=== PATIENT | female | born 1980 ===

== ENCOUNTER 2019-03-13 22:18 | Inpatient (IN) | payer OTHER ==
[2019-03-13] MEDS ORDERED: Sodium Chloride 0.9% 10 ML Syringe FLUSH PRN (23:44)
[2019-03-13] MEDS ORDERED: Butorphanol 1 MG/ML SDV IVPUSH PRN (23:44)
[2019-03-13] MEDS ORDERED: Tranexamic Acid 1,000 MG in Sodium Chloride 0.9% 100 ML IV PRN (23:44)
[2019-03-13] MEDS ORDERED: Methylergonovine 0.2 MG/1 ML Amp IM PRN (23:44)
[2019-03-13] MEDS ORDERED: Water For Irrigation,Sterile 1,000 ML Container IRR PRN (23:44)
[2019-03-13] MEDS ORDERED: Lidocaine 1% 50 ML MDV INJECT PRN (23:44)
[2019-03-13] MEDS ORDERED: Misoprostol 25 MCG (1/4 of 100 MCG) Tab PO PRN (23:44)
[2019-03-13] MEDS ORDERED: Nalbuphine 10 MG/1 ML Vial IVPUSH PRN (23:44)
[2019-03-13] MEDS ORDERED: Terbutaline 1 MG/ML SDV SUBCUT PRN (23:44)
[2019-03-13] MEDS ORDERED: Ondansetron 4 MG/2 ML SDV IVPUSH PRN (23:44)
[2019-03-13] MEDS ORDERED: Misoprostol 25 MCG (1/4 of 100 MCG) Tab VAG PRN (23:44)
[2019-03-13] MEDS ORDERED: Misoprostol 200 MCG Tab PO PRN (23:44)
[2019-03-13] MEDS ORDERED: Carboprost Tromethamine 250 MCG/1 ML Amp IM PRN (23:44)
[2019-03-13] MEDS ORDERED: Sodium Chloride 0.9% 10 ML SDV IV PRN (23:44)
[2019-03-13] MEDS ORDERED: Oxytocin/0.9 % Sodium Chloride 30 UNIT/500 ML BAG IV SCH ×2 (23:45)
[2019-03-13] MEDS ORDERED: Lactated Ringers 1,000 ML IV SCH (23:45)
[2019-03-14] MEDS ORDERED: Terbutaline 1 MG/ML SDV ONE (03:30)
[2019-03-14] MEDS ORDERED: Propofol 200 MG/20 ML SDV ONE (03:32)
[2019-03-14] MEDS ORDERED: Lidocaine 1% 50 ML MDV ONE (03:32)
[2019-03-14] MEDS ORDERED: Midazolam 1 MG/ML 2 ML SDV ONE (03:39)
[2019-03-14] MEDS ORDERED: fentaNYL 250 MCG/5 ML SDV ONE (03:40)
[2019-03-14] MEDS ORDERED: HYDROmorphone 2 MG/ML Syringe ONE (03:53)
[2019-03-14] MEDS ORDERED: EPINEPHrine 1:10,000 1 MG/10 ML Syringe IVPUSH PRN (04:04)
[2019-03-14] MEDS ORDERED: 50% Dextrose in Water 50 ML Syringe IVPUSH PRN (04:04)
[2019-03-14] MEDS ORDERED: Albuterol 0.083% 2.5 MG/3 ML Neb Soln NEB PRN (04:04)
[2019-03-14] MEDS ORDERED: Atropine 0.1 MG/ML 10 ML Syringe IVPUSH PRN ×2 (04:04)
[2019-03-14] MEDS ORDERED: Naloxone 0.4 MG/ML Syringe IVPUSH PRN (04:04)
[2019-03-14] MEDS ORDERED: Octyl 2-Cyanoacrylate 1 Tube ONE (04:06)
[2019-03-14] MEDS ORDERED: Sugammadex Sodium 200 MG/2 ML VIAL ONE (04:15)
--- NOTE | 2019-03-14 04:30 | CR ---
Indication: S/p emergency Technique: Supine view abdomen Comparison: None Findings/Impression: : No radiopaque foreign body identified. Increased soft tissue density within the central abdomen consistent with enlarged uterus. Nonspecific bowel gas pattern. Dictated by Vickie Hernandez MD @ Mar 14 2019 4:26AM Signed by Dr. Vickie Hernandez @ Mar 14 2019 4:28AM
--- NOTE | 2019-03-14 04:32 | PCM.LDHP ---
L&D History of Present Illness - General Date of Service: 03/14/19 Admit Problem/Dx: Patient Status Order with Admit Dx/Problem 03/13/19 23:44 Patient Status [ADT] Routine Admission Diagnosis/Problem Admission Diagnosis/Problem -related examination Source of Information: Patient History Limitations: Reports: No Limitations - History of Present Illness Improves with: Reports: None Worsens with: Reports: None Associated Symptoms: Reports: N - Related Data Allergies/Adverse Reactions: Allergies Allergy/AdvReac Type Severity Reaction Status Date / Time No Known Allergies Allergy Verified 03/13/19 16:16 Home Medications: Home Meds Ferrous Sulfate [Iron] 325 mg PO DAILY 03/13/19 [History] Vits #93/Iron Fum/FA [ Formula Tablet] 1 each PO DAILY [History] valACYclovir HCl [Valtrex] 500 mg PO DAILY 03/13/19 [History] Past Medical History - Past Health History Medical/Surgical History: Denies 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: Social & Family History - Family History Family Medical History: Noncontributory - Tobacco Use Smoking Status *Q: Never Smoker Second Hand Smoke Exposure: No - Caffeine Use Caffeine Use: Reports: Soda - Recreational Drug Use Recreational Drug Use: No H&P Review of Systems - Review of Systems: Review Of Systems: See Below General: Reports: No Symptoms HEENT: Reports: No Symptoms Pulmonary: Reports: No Symptoms Cardiovascular: Reports: No Symptoms Gastrointestinal: Reports: No Symptoms Genitourinary: Reports: No Symptoms Musculoskeletal: Reports: No Symptoms Skin: Reports: No Symptoms Psychiatric: Reports: No Symptoms Neurological: Reports: No Symptoms Hematologic/Lymphatic: Reports: No Symptoms Immunologic: Reports: No Symptoms L&D Exam - Exam Exam: See Below - Vital Signs Weight: 86.183 kg - OB Specific Contraction Intensity: Mild Movement: Active Heart Tones: Present Presentation: Vertex - Alamo Score Alamo Score Cervix Position: Midposition Alamo Score Consistency: Medium Alamo Score Effacement: 31-50% Alamo Score Dilation: Closed Alamo Score 's Station: -3 Alamo Score Total: 3 - Exam General: Alert, Oriented HEENT: PERRLA, Conjunctiva Clear, EACs Clear, EOMI, Hearing Intact, Mucosa Moist & [place], Nares Patent, Normal Nasal Septum, Posterior Pharynx Clear, TMs Clear Neck: Supple, Trachea Midline Lungs: Clear to Auscultation, Normal Respiratory Effort Cardiovascular: Regular Rate, Regular Rhythm GI/Abdominal Exam: Normal Bowel Sounds, Soft, Non-Tender, No Organomegaly, No Distention, No Abnormal Bruit, No Mass, Pelvis Stable Rectal Exam: Normal Exam, Normal Rectal Tone Genitourinary: Normal external exam, Normal bimanual exam, Normal speculum exam Back Exam: Normal Inspection, Full Range of Motion Extremities: Normal Inspection, Normal Range of Motion, Non-Tender, No Pedal Edema, Normal Capillary Refill Skin: Warm, Dry, Intact Neurological: Cranial Nerves Intact, Reflexes Equal Bilateral Psychiatric: Alert, Normal Affect, Normal Mood - Patient Data Lab Results Last 24 hrs: Laboratory Results - last 24 hr 03/14/19 03/14/19 Range/Units 00:24 00:24 WBC 10.94 (4.0-11.0) K/uL RBC 4.11 L (4.30-5.90) M/uL Hgb 12.4 (12.0-16.0) g/dL Hct 36.8 (36.0-46.0) % MCV 89.5 (80.0-98.0) fL MCH 30.2 (27.0-32.0) pg MCHC 33.7 (31.0-37.0) g/dL RDW Std Deviation 59.0 (28.0-62.0) fl RDW Coeff of Bety 18 H (11.0-15.0) % Plt Count 224 (150-400) K/uL MPV 10.30 (7.40-12.00) fL Nucleated RBC % 0.0 /100WBC Nucleated RBCs # 0 K/uL Blood Type B POSITIVE Antibody Screen NEGATIVE Crossmatch See Detail Result Diagrams: 03/14/19 00:24 Problem List Initiated/Reviewed/Updated: Yes Orders Last 24hrs: Active Orders 24 hr Category Date Time Status Patient Status [ADT] Routine ADT 03/13/19 23:44 Active Bedrest Bathroom Privileges [RC] ASDIRECTED Care 03/13/19 23:44 Active Blood Glucose Check, Bedside [RC] PRN Care 03/14/19 04:04 Active Communication Order [RC] ASDIRECTED Care 03/13/19 23:44 Active Communication Order [RC] ASDIRECTED Care 03/13/19 23:44 Active Communication Order [RC] ASDIRECTED Care 03/13/19 23:44 Active Heart Tones [RC] CONTINUOUS Care 03/13/19 23:44 Active Non Stress Test [RC] PER UNIT ROUTINE Care 03/13/19 23:44 Active May Shower [RC] ASDIRECTED Care 03/13/19 23:44 Active Notify Provider Vital Signs [RC] ASDIRECTED Care 03/14/19 04:04 Active Notify Provider [RC] PRN Care 03/13/19 23:44 Active Notify Provider [RC] PRN Care 03/13/19 23:44 Active Notify Provider [RC] PRN Care 03/13/19 23:44 Active Notify Provider [RC] STAT Care 03/13/19 23:44 Active Oxygen Therapy [RC] ASDIRECTED Care 03/13/19 23:44 Active Oxygen Therapy [RC] PRN Care 03/14/19 04:04 Active RT Aerosol Therapy [RC] ASDIRECTED Care 03/14/19 04:04 Active RT Aerosol Therapy [RC] ASDIRECTED Care 03/14/19 04:04 Active RT Aerosol Therapy [RC] ASDIRECTED Care 03/14/19 04:04 Active Up ad Monica [RC] ASDIRECTED Care 03/13/19 23:44 Active Vaginal Exam [RC] PRN Care 03/13/19 23:44 Active Vaginal Exam [RC] PRN Care 03/13/19 23:44 Active Vital Signs [RC] PER UNIT ROUTINE Care 03/13/19 23:44 Active Vital Signs [RC] PER UNIT ROUTINE Care 03/13/19 23:44 Active Vital Signs [RC] Q5M Care 03/14/19 04:04 Active Regular Diet [DIET] Diet 03/14/19 Breakfast Active RED BLOOD CELLS LP [BBK] Stat Lab 03/14/19 00:24 Results TYPE AND SCREEN [BBK] Routine Lab 03/13/19 23:44 Results Albuterol [Proventil Neb Soln] Med 03/14/19 04:04 Active 2.5 mg NEB ONETIME PRN Atropine [Atropine 0.1 MG/ML] Med 03/14/19 04:04 Active 0.5 mg IVPUSH ASDIRECTED PRN Atropine [Atropine 0.1 MG/ML] Med 03/14/19 04:04 Active 1 mg IVPUSH ASDIRECTED PRN Butorphanol [Stadol] Med 03/13/19 23:44 Active 1 mg IVPUSH ASDIRECTED PRN Carboprost Tromethamine [Hemabate DS] Med 03/13/19 23:44 Active 250 mcg IM ASDIRECTED PRN Dextrose 50% in Water Med 03/14/19 04:04 Active 50 ml IVPUSH ASDIRECTED PRN EPINEPHrine [EPINEPHrine 1:10,000] Med 03/14/19 04:04 Active 1 mg IVPUSH ASDIRECTED PRN Lactated Ringers [Ringers, Lactated] 1,000 ml Med 03/13/19 23:45 Active IV ASDIRECTED Lidocaine 1% [Xylocaine 1%] Med 03/13/19 23:44 Active 50 ml INJECT ONETIME PRN Methylergonovine [Methergine] Med 03/13/19 23:44 Active 0.2 mg IM ASDIRECTED PRN Nalbuphine [Nubain] Med 03/13/19 23:44 Active 10 mg IVPUSH ASDIRECTED PRN Naloxone [Narcan] Med 03/14/19 04:04 Active 0.1 mg IVPUSH ASDIRECTED PRN Ondansetron [Zofran] Med 03/13/19 23:44 Active 4 mg IVPUSH Q6H PRN Oxytocin/0.9 % Sodium Chloride [Oxytocin 30 Unit/500 ML Med 03/13/19 23:45 Active -NS] 30 unit in 500 ml IV TITRATE Oxytocin/0.9 % Sodium Chloride [Oxytocin 30 Unit/500 ML Med 03/13/19 23:45 Active -NS] 30 unit in 500 ml IV TITRATE Sodium Chloride 0.9% [Normal Saline] Med 03/13/19 23:44 Active 10 ml IV ASDIRECTED PRN Sodium Chloride 0.9% [Saline Flush] Med 03/13/19 23:44 Active 10 ml FLUSH ASDIRECTED PRN Terbutaline [Brethine] Med 03/13/19 23:44 Active 0.25 mg SUBCUT ASDIRECTED PRN Tranexamic Acid [Cyklokapron] 1,000 mg Med 03/13/19 23:44 Active Sodium Chloride 0.9% [Normal Saline] 100 ml IV ONETIME Water For Irrigation,Sterile [Sterile Water for Med 03/13/19 23:44 Active Irrigation] 1,000 ml IRR ASDIRECTED PRN fentaNYL [Sublimaze] Med 03/14/19 04:04 Active 50 - 100 mcg IVPUSH Q5M PRN miSOPROStol [Cytotec] Med 03/13/19 23:44 Active 200 mcg PO ONETIME PRN miSOPROStol [Cytotec] Med 03/13/19 23:44 Active 25 mcg PO Q4H PRN miSOPROStol [Cytotec] Med 03/13/19 23:44 Active 25 mcg VAG Q4H PRN Scalp Electrode [WOMSER] Per Unit Routine Oth 03/13/19 23:44 Ordered Medication Administration Instruction [OM.PC] Q3H Oth 03/13/19 23:45 Ordered Peripheral IV Insertion Adult [OM.PC] Routine Ot 03/13/19 23:44 Ordered Resuscitation Status Routine Resus Stat 03/13/19 23:44 Ordered Medication Orders Albuterol (Proventil Neb Soln) 2.5 mg NEB ONETIME PRN PRN Reason: Wheezing Atropine Sulfate (Atropine 0.1 Mg/Ml) 0.5 mg IVPUSH ASDIRECTED PRN PRN Reason: Hypo-perfusion Atropine Sulfate (Atropine 0.1 Mg/Ml) 1 mg IVPUSH ASDIRECTED PRN PRN Reason: Hypo-Perfusion Butorphanol Tartrate (Stadol) 1 mg IVPUSH ASDIRECTED PRN PRN Reason: Pain Carboprost Tromethamine (Hemabate Ds) 250 mcg IM ASDIRECTED PRN PRN Reason: Post Hemorrhage Dextrose/Water (Dextrose 50% In Water) 50 ml IVPUSH ASDIRECTED PRN PRN Reason: Hypoglycemia Epinephrine HCl (Epinephrine 1:10,000) 1 mg IVPUSH ASDIRECTED PRN PRN Reason: ACLS Guidelines Fentanyl (Sublimaze) 50 - 100 mcg IVPUSH Q5M PRN PRN Reason: Pain Lactated Ringer's (Ringers, Lactated) 1,000 mls @ 150 mls/hr IV ASDIRECTED [facility] Oxytocin/Sodium Chloride (Oxytocin 30 Unit/500 Ml-Ns) 30 unit in 500 mls @ 999 mls/hr IV TITRATE [facility] Oxytocin/Sodium Chloride (Oxytocin 30 Unit/500 Ml-Ns) 30 unit in 500 mls @ 2 mls/hr IV TITRATE [facility]; Protocol Tranexamic Acid 1,000 mg/ (Sodium Chloride) 110 mls @ 660 mls/hr IV ONETIME PRN PRN Reason: Bleeding Lidocaine HCl (Xylocaine 1%) 50 ml INJECT ONETIME PRN PRN Reason: Laceration repair Methylergonovine Maleate (Methergine) 0.2 mg IM ASDIRECTED PRN PRN Reason: Post Hemorrhage Misoprostol (Cytotec) 200 mcg PO ONETIME PRN PRN Reason: Post Hemorrhage Misoprostol (Cytotec) 25 mcg PO Q4H PRN PRN Reason: Cervical Ripening Last Admin: 03/14/19 01:00 Dose: 25 mcg Misoprostol (Cytotec) 25 mcg VAG Q4H PRN PRN Reason: Cervical Ripening Last Admin: 03/14/19 00:57 Dose: 25 mcg Nalbuphine HCl (Nubain) 10 mg IVPUSH ASDIRECTED PRN PRN Reason: Pain (severe 7-10) Naloxone HCl (Narcan) 0.1 mg IVPUSH ASDIRECTED PRN PRN Reason: Respiratory Depression Ondansetron HCl (Zofran) 4 mg IVPUSH Q6H PRN PRN Reason: Nausea/Vomiting Sodium Chloride (Saline Flush) 10 ml FLUSH ASDIRECTED PRN PRN Reason: Keep Vein Open Last Admin: 03/14/19 01:05 Dose: 10 ml Sodium Chloride (Normal Saline) 10 ml IV ASDIRECTED PRN PRN Reason: IV Use Sterile Water (Sterile Water For Irrigation) 1,000 ml IRR ASDIRECTED PRN PRN Reason: delivery Terbutaline Sulfate (Brethine) 0.25 mg SUBCUT ASDIRECTED PRN PRN Reason: Tacysystole Assessment/Plan Comment:: POst date 41+wks admited for induction.
[2019-03-14] MEDS ORDERED: Bisacodyl 10 MG Supp RECTAL PRN (04:33)
[2019-03-14] MEDS ORDERED: diphenhydrAMINE 50 MG/ML SDV IVPUSH PRN (04:33)
[2019-03-14] MEDS ORDERED: fentaNYL 100 MCG/2 ML SDV ONE (04:33)
[2019-03-14] MEDS ORDERED: Acetaminophen/oxyCODONE 325-5 MG Tab PO PRN (04:33)
[2019-03-14] MEDS ORDERED: Lanolin 100% Cream 7 GM Tube TOP PRN (04:33)
[2019-03-14] MEDS ORDERED: Ondansetron 4 MG/2 ML SDV IVPUSH PRN (04:33)
--- NOTE | 2019-03-14 04:41 | PCM.OPNOTE ---
- General Post-Op/Procedure Note Date of Surgery/Procedure: 03/14/19 Operative Procedure(s): Primary C/section. Pre Op Diagnosis: [id number] footling Breech. Post-Op Diagnosis: Same Anesthesia Technique: General ET Tube Primary Surgeon: Aly Fried EBL in mLs: 900 Complications: None Condition: Good
[2019-03-14] MEDS ORDERED: Lactated Ringers 1,000 ML IV SCH (04:45)
--- NOTE | 2019-03-14 05:08 | PCM.PREANE ---
Preanesthetic Assessment - Anesthesia/Transfusion/Family Hx Anesthesia History: No Prior Anesthesia Family History of Anesthesia Reaction: No Transfusion History: No Prior Transfusion(s) - Review of Systems General: No Symptoms Pulmonary: No Symptoms Cardiovascular: No Symptoms Gastrointestinal: No Symptoms Neurological: No Symptoms Other: Reports: None - Physical Assessment Height: 5 ft 4 in Weight: 86.183 kg ASA Class: 2E Mental Status: Alert & Oriented x3 Airway Class: Mallampati = 2 Dentition: Reports: Normal Dentition Thyro-Mental Finger Breadths: 3 Mouth Opening Finger Breadths: 3 ROM/Head Extension: Full Lungs: Clear to Auscultation, Normal Respiratory Effort Cardiovascular: Regular Rate, Regular Rhythm, Tachycardia - Lab Values: Laboratory Last Values WBC 10.94 K/uL (4.0-11.0) 03/14/19 00:24 RBC 4.11 M/uL (4.30-5.90) L 03/14/19 00:24 Hgb 12.4 g/dL (12.0-16.0) 03/14/19 00:24 Hct 36.8 % (36.0-46.0) 03/14/19 00:24 MCV 89.5 fL (80.0-98.0) 03/14/19 00:24 MCH 30.2 pg (27.0-32.0) 03/14/19 00:24 MCHC 33.7 g/dL (31.0-37.0) 03/14/19 00:24 RDW Std Deviation 59.0 fl (28.0-62.0) 03/14/19 00:24 RDW Coeff of Bety 18 % (11.0-15.0) H 03/14/19 00:24 Plt Count 224 K/uL (150-400) 03/14/19 00:24 MPV 10.30 fL (7.40-12.00) 03/14/19 00:24 Nucleated RBC % 0.0 /100WBC 03/14/19 00:24 Nucleated RBCs # 0 K/uL 03/14/19 00:24 Blood Type B POSITIVE 03/14/19 00:24 Antibody Screen NEGATIVE 03/14/19 00:24 Crossmatch See Detail 03/14/19 00:24 - Allergies Allergies/Adverse Reactions: Allergies Allergy/AdvReac Type Severity Reaction Status Date / Time No Known Allergies Allergy Verified 03/13/19 16:16 - Acknowledgements Anesthesia Type Planned: General Anesthesia Pt an Appropriate Candidate for the Planned Anesthesia: Yes Alternatives and Risks of Anesthesia Discussed w Pt/Guardian: Yes Pt/Guardian Understands and Agrees with Anesthesia Plan: Yes PreAnesthesia Questionnaire - Past Health History Medical/Surgical History: Denies Medical/Surgical History HEENT History: Reports: None Cardiovascular History: Reports: None Respiratory History: Reports: None Gastrointestinal History: Reports: GERD Genitourinary History: Reports: None 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: : 4 Para: 3 LMP (Approximate): Musculoskeletal History: Reports: None Neurological History: Reports: None Psychiatric History: Reports: None Endocrine/Metabolic History: Reports: None Hematologic History: Reports: None Immunologic History: Reports: None Oncologic (Cancer) History: Reports: None Dermatologic History: Reports: None - Infectious Disease History Infectious Disease History: Reports: None - SUBSTANCE USE Smoking Status *Q: Never Smoker Tobacco Use Within Last Twelve Months: No Second Hand Smoke Exposure: No Recreational Drug Use History: No - HOME MEDS Home Medications: Home Meds Ferrous Sulfate [Iron] 325 mg PO DAILY 03/13/19 [History] Vits #93/Iron Fum/FA [ Formula Tablet] 1 each PO DAILY [History] valACYclovir HCl [Valtrex] 500 mg PO DAILY 03/13/19 [History] - CURRENT (IN HOUSE) MEDS Current Meds: Current Medications Albuterol (Proventil Neb Soln) 2.5 mg NEB ONETIME PRN PRN Reason: Wheezing Atropine Sulfate (Atropine 0.1 Mg/Ml) 0.5 mg IVPUSH ASDIRECTED PRN PRN Reason: Hypo-perfusion Atropine Sulfate (Atropine 0.1 Mg/Ml) 1 mg IVPUSH ASDIRECTED PRN PRN Reason: Hypo-Perfusion Bisacodyl (Dulcolax) 10 mg RECTAL ONETIME PRN PRN Reason: Constipation Butorphanol Tartrate (Stadol) 1 mg IVPUSH ASDIRECTED PRN PRN Reason: Pain Carboprost Tromethamine (Hemabate Ds) 250 mcg IM ASDIRECTED PRN PRN Reason: Post Hemorrhage Dextrose/Water (Dextrose 50% In Water) 50 ml IVPUSH ASDIRECTED PRN PRN Reason: Hypoglycemia Diphenhydramine HCl (Benadryl) 25 mg IVPUSH Q6H PRN PRN Reason: Itching or Nausea Docusate Sodium (Colace) 100 mg PO BID [facility] Emollient Ointment (Lansinoh Hpa) 0 gm TOP ASDIRECTED PRN PRN Reason: Sore Nipples Epinephrine HCl (Epinephrine 1:10,000) 1 mg IVPUSH ASDIRECTED PRN PRN Reason: ACLS Guidelines Fentanyl (Sublimaze) 50 - 100 mcg IVPUSH Q5M PRN PRN Reason: Pain Lactated Ringer's (Ringers, Lactated) 1,000 mls @ 150 mls/hr IV ASDIRECTED [facility] Oxytocin/Sodium Chloride (Oxytocin 30 Unit/500 Ml-Ns) 30 unit in 500 mls @ 999 mls/hr IV TITRATE [facility] Oxytocin/Sodium Chloride (Oxytocin 30 Unit/500 Ml-Ns) 30 unit in 500 mls @ 2 mls/hr IV TITRATE [facility]; Protocol Tranexamic Acid 1,000 mg/ (Sodium Chloride) 110 mls @ 660 mls/hr IV ONETIME PRN PRN Reason: Bleeding Lactated Ringer's (Ringers, Lactated) 1,000 mls @ 125 mls/hr IV ASDIRECTED [facility] Ibuprofen (Motrin) 800 mg PO Q8H PRN PRN Reason: mild pain or fever Ketorolac Tromethamine (Toradol) 30 mg IVPUSH Q6H [facility] Stop: 03/15/19 04:01 Lidocaine HCl (Xylocaine 1%) 50 ml INJECT ONETIME PRN PRN Reason: Laceration repair Methylergonovine Maleate (Methergine) 0.2 mg IM ASDIRECTED PRN PRN Reason: Post Hemorrhage Misoprostol (Cytotec) 200 mcg PO ONETIME PRN PRN Reason: Post Hemorrhage Misoprostol (Cytotec) 25 mcg PO Q4H PRN PRN Reason: Cervical Ripening Last Admin: 03/14/19 01:00 Dose: 25 mcg Misoprostol (Cytotec) 25 mcg VAG Q4H PRN PRN Reason: Cervical Ripening Last Admin: 03/14/19 00:57 Dose: 25 mcg Nalbuphine HCl (Nubain) 10 mg IVPUSH ASDIRECTED PRN PRN Reason: Pain (severe 7-10) Naloxone HCl (Narcan) 0.1 mg IVPUSH ASDIRECTED PRN PRN Reason: Respiratory Depression Ondansetron HCl (Zofran) 4 mg IVPUSH Q6H PRN PRN Reason: Nausea/Vomiting Ondansetron HCl (Zofran) 4 mg IVPUSH Q4H PRN PRN Reason: Nausea/Vomiting Oxycodone/Acetaminophen (Percocet 325-5 Mg) 1 tab PO Q4H PRN PRN Reason: Pain (moderate 4-6) Oxycodone/Acetaminophen (Percocet 325-5 Mg) 2 tab PO Q4H PRN PRN Reason: Pain (moderate 4-6) Sodium Chloride (Saline Flush) 10 ml FLUSH ASDIRECTED PRN PRN Reason: Keep Vein Open Last Admin: 03/14/19 01:05 Dose: 10 ml Sodium Chloride (Normal Saline) 10 ml IV ASDIRECTED PRN PRN Reason: IV Use Sterile Water (Sterile Water For Irrigation) 1,000 ml IRR ASDIRECTED PRN PRN Reason: delivery Terbutaline Sulfate (Brethine) 0.25 mg SUBCUT ASDIRECTED PRN PRN Reason: Tacysystole Discontinued Medications Fentanyl (Sublimaze) Confirm Administered Dose 250 mcg .ROUTE .STK-MED ONE Stop: 03/14/19 03:41 Fentanyl (Sublimaze) Confirm Administered Dose 100 mcg .ROUTE .STK-MED ONE Stop: 03/14/19 04:34 Hydromorphone HCl (Dilaudid) Confirm Administered Dose 2 mg .ROUTE .STK-MED ONE Stop: 03/14/19 03:54 Lidocaine HCl (Xylocaine 1%) Confirm Administered Dose 50 ml .ROUTE .STK-MED ONE Stop: 03/14/19 03:33 Midazolam HCl (Versed 1 Mg/Ml) Confirm Administered Dose 2 mg .ROUTE .STK-MED ONE Stop: 03/14/19 03:40 Octyl Cyanoacrylate (Dermabond Advance) Confirm Administered Dose 1 applic .ROUTE .STK-MED ONE Stop: 03/14/19 04:07 Propofol (Diprivan 20 Ml) Confirm Administered Dose 200 mg .ROUTE .STK-MED ONE Stop: 03/14/19 03:33 Succinylcholine Chloride (Succinylcholine Chloride) Confirm Administered Dose 200 mg .ROUTE .STK-MED ONE Stop: 03/14/19 03:33 Sugammadex Sodium (Bridion) Confirm Administered Dose 200 mg .ROUTE .STK-MED ONE Stop: 03/14/19 04:16 Terbutaline Sulfate (Brethine) Confirm Administered Dose 2 mg .ROUTE .STK-MED ONE Stop: 03/14/19 03:31
[2019-03-14] MEDS: Ketorolac 30 MG/ML SDV IVPUSH SCH ×3 (05:14→17:51)
[2019-03-14] MEDS ORDERED: Meperidine PF 25 MG/ML Syringe IVPUSH ONE (05:18)
[2019-03-14] MEDS ORDERED: Meperidine PF 50 MG/ML Syringe ONE (05:19)
--- NOTE | 2019-03-14 05:37 | PCM.POSTAN ---
POST ANESTHESIA ASSESSMENT - MENTAL STATUS Mental Status: Alert, Oriented - VITAL SIGNS Pulse Rate: 90 SaO2: 98 Resp Rate: 14 Blood Pressure: 121/70 - RESPIRATORY Respiratory Status: Respiratory Rate WNL, Airway Patent, O2 Saturation Stable - CARDIOVASCULAR CV Status: Pulse Rate WNL, Blood Pressure Stable - GASTROINTESTINAL GI Status: No Symptoms - PAIN Pain Score: 2 - POST OP HYDRATION Hydration Status: Adequate & Stable
[2019-03-14] MEDS: fentaNYL 100 MCG/2 ML SDV IVPUSH PRN ×2 (05:41→05:55)
--- NOTE | 2019-03-14 06:25 | OR ---
SURGEON: Aly Fried MD DATE OF PROCEDURE: PREOPERATIVE DIAGNOSES: Intrauterine at 41+ weeks, emergency section for prolapsing footling breech presentation. POSTOPERATIVE DIAGNOSES: Intrauterine at 41+ weeks, emergency section for prolapsing footling breech presentation. OPERATION PERFORMED: Primary low-transverse section through a midline skin incision. ANESTHESIA: General with endotracheal intubation with Jose Dumont. ESTIMATED BLOOD LOSS: 900 mL. COMPLICATIONS: None. FINDING: Female fetus in footling breech presentation, cried at the at the time of the . Normal uterus, tubes, and ovaries. INDICATION FOR SURGERY: The patient is 41+ weeks. She is followed in our clinic primarily by our violin tutor. She is noncompliant with all her appointment. I saw her in the office on March 13, 2019, and she was 41+ weeks. I discussed with the patient, would have possible induction. The patient went to Labor and Delivery for NST testing which was reactive and she had biophysical profile, which is 8/8, and at that time, her presentation during the biophysical profile confirmed to be vertex by the ultrasound. After discussion the option with the patient, the patient agreed for the induction. She is admitted at midnight. At the time of admission, by examination by nurse, she was 1 cm, 50% vertex and -3. The patient had copious amount of amniotic fluid as it is noted by a biophysical profile earlier. The patient admitted for induction and she was induced with Cytotec. She was given one dose of Cytotec p.o. and vaginally, and she started progressing and at the time she became 5 cm and she had a spontaneous rupture of the membrane with copious amount of fluid as it came according to the nurses and then somehow the presentation changed from vertex to breech and there was a footling breech and there was a foot hanging in the vagina and through the introitus. I was called immediately and I responded in an emergency basis. We called the OR team and anesthesia when I was in route and we proceeded for emergency section. PROCEDURE IN DETAIL: The patient was brought to the OR. After placing in the operative room and with abbreviated prep and drapes and we have no time to put a Jackson catheter, but the patient is placed to sleep. Once the patient was placed to sleep, midline incision was done. Lucina's fascia and rectus fascia were opened in direction of the incision and the bladder blade was placed in the usual manner and then low transverse incision was done by me and the fetus was delivered from a footling breech and handed to the nurses who resuscitated the baby. The baby cried immediately and score not reported at the time of this dictation. Then I proceeded to close the uterine incision with 2-0 Vicryl continuous interlocking in 2 layers. By this time, I placed the pack on the incision and we had the OR charging board operator place a Jackson catheter to drain the bladder, and after draining the bladder, on inspection of the incision, there was an area of bleeding at the right corner of the incision. A [id number] suture was applied to that area and the bleeding stopped. Then reperitonealization done over the lower uterine segment with 3-0 Vicryl continuous. Inspection of the entire operative field shows no oozing, no bleeding. We proceeded to close the fascia with the peritoneum in mass closure using a #1 PDS continuous. The Lucina's fascia was closed with 3-0 Vicryl continuous. The skin closed with Insorb and Dermabond. Because we did not have preoperative count of the instrument and lap pad, a flat x-ray of the abdomen on the patient was done, and later on, it was reported there was no foreign body, it is clear from anything so. The patient awakened up and taken to the recovery room in stable general condition. LIANA BENITEZ /[id number]
[2019-03-14] MEDS: Morphine 10 MG/ML Syringe IVPUSH PRN ×2 (08:20→13:42)
[2019-03-14] MEDS: Docusate Sodium 100 MG Cap PO SCH ×2 (09:18→21:12)
--- NOTE | 2019-03-14 10:56 | PCM.PNPP ---
- General Info Date of Service: 03/14/19 Functional Status: Reports: Pain Controlled - Review of Systems General: Reports: No Symptoms HEENT: Reports: No Symptoms Pulmonary: Reports: No Symptoms Cardiovascular: Reports: No Symptoms Gastrointestinal: Reports: No Symptoms Genitourinary: Reports: No Symptoms Musculoskeletal: Reports: No Symptoms Skin: Reports: No Symptoms Neurological: Reports: No Symptoms Psychiatric: Reports: No Symptoms - General Info Date of Service: 03/14/19 - Patient Data Vital Signs - Most Recent: Last Vital Signs Temp 36.6 C 03/14/19 10:00 Pulse 64 03/14/19 10:00 Resp 16 03/14/19 10:00 BP 125/62 03/14/19 10:00 Pulse Ox 96 03/14/19 10:00 Weight - Most Recent: 86.183 kg I&O - Last 24 Hours: Intake & Output 03/13/19 03/14/19 03/14/19 22:59 06:59 14:59 Intake Total 3100 Output Total 325 Balance 2775 Lab Results - Last 24 Hours: Laboratory Results - last 24 hr 03/14/19 03/14/19 03/14/19 Range/Units 00:24 00:24 05:10 WBC 10.94 12.73 H (4.0-11.0) K/uL RBC 4.11 L 3.63 L (4.30-5.90) M/uL Hgb 12.4 10.9 L (12.0-16.0) g/dL Hct 36.8 32.8 L (36.0-46.0) % MCV 89.5 90.4 (80.0-98.0) fL MCH 30.2 30.0 (27.0-32.0) pg MCHC 33.7 33.2 (31.0-37.0) g/dL RDW Std Deviation 59.0 58.9 (28.0-62.0) fl RDW Coeff of Bety 18 H 18 H (11.0-15.0) % Plt Count 224 184 (150-400) K/uL MPV 10.30 10.20 (7.40-12.00) fL Nucleated RBC % 0.0 0.0 /100WBC Nucleated RBCs # 0 0 K/uL Blood Type B POSITIVE Antibody Screen NEGATIVE Crossmatch See Detail 03/14/19 Range/Units 08:18 WBC (4.0-11.0) K/uL RBC (4.30-5.90) M/uL Hgb 10.3 L (12.0-16.0) g/dL Hct 30.8 L (36.0-46.0) % MCV (80.0-98.0) fL MCH (27.0-32.0) pg MCHC (31.0-37.0) g/dL RDW Std Deviation (28.0-62.0) fl RDW Coeff of Bety (11.0-15.0) % Plt Count (150-400) K/uL MPV (7.40-12.00) fL Nucleated RBC % /100WBC Nucleated RBCs # K/uL Blood Type Antibody Screen Crossmatch Med Orders - Current: Current Medications Albuterol (Proventil Neb Soln) 2.5 mg NEB ONETIME PRN PRN Reason: Wheezing Atropine Sulfate (Atropine 0.1 Mg/Ml) 0.5 mg IVPUSH ASDIRECTED PRN PRN Reason: Hypo-perfusion Atropine Sulfate (Atropine 0.1 Mg/Ml) 1 mg IVPUSH ASDIRECTED PRN PRN Reason: Hypo-Perfusion Bisacodyl (Dulcolax) 10 mg RECTAL ONETIME PRN PRN Reason: Constipation Butorphanol Tartrate (Stadol) 1 mg IVPUSH ASDIRECTED PRN PRN Reason: Pain Carboprost Tromethamine (Hemabate Ds) 250 mcg IM ASDIRECTED PRN PRN Reason: Post Hemorrhage Dextrose/Water (Dextrose 50% In Water) 50 ml IVPUSH ASDIRECTED PRN PRN Reason: Hypoglycemia Diphenhydramine HCl (Benadryl) 25 mg IVPUSH Q6H PRN PRN Reason: Itching or Nausea Docusate Sodium (Colace) 100 mg PO BID JAISON Last Admin: 03/14/19 09:18 Dose: 100 mg Emollient Ointment (Lansinoh Hpa) 0 gm TOP ASDIRECTED PRN PRN Reason: Sore Nipples Epinephrine HCl (Epinephrine 1:10,000) 1 mg IVPUSH ASDIRECTED PRN PRN Reason: ACLS Guidelines Fentanyl (Sublimaze) 50 - 100 mcg IVPUSH Q5M PRN PRN Reason: Pain Last Admin: 03/14/19 05:55 Dose: 50 mcg Lactated Ringer's (Ringers, Lactated) 1,000 mls @ 150 mls/hr IV ASDIRECTED [facility] Oxytocin/Sodium Chloride (Oxytocin 30 Unit/500 Ml-Ns) 30 unit in 500 mls @ 999 mls/hr IV TITRATE [facility] Oxytocin/Sodium Chloride (Oxytocin 30 Unit/500 Ml-Ns) 30 unit in 500 mls @ 2 mls/hr IV TITRATE [facility]; Protocol Tranexamic Acid 1,000 mg/ (Sodium Chloride) 110 mls @ 660 mls/hr IV ONETIME PRN PRN Reason: Bleeding Lactated Ringer's (Ringers, Lactated) 1,000 mls @ 125 mls/hr IV ASDIRECTED [facility] Ibuprofen (Motrin) 800 mg PO Q8H PRN PRN Reason: mild pain or fever Ketorolac Tromethamine (Toradol) 30 mg IVPUSH Q6H [facility] Stop: 03/15/19 04:01 Last Admin: 03/14/19 05:14 Dose: 30 mg Lidocaine HCl (Xylocaine 1%) 50 ml INJECT ONETIME PRN PRN Reason: Laceration repair Methylergonovine Maleate (Methergine) 0.2 mg IM ASDIRECTED PRN PRN Reason: Post Hemorrhage Misoprostol (Cytotec) 200 mcg PO ONETIME PRN PRN Reason: Post Hemorrhage Misoprostol (Cytotec) 25 mcg PO Q4H PRN PRN Reason: Cervical Ripening Last Admin: 03/14/19 01:00 Dose: 25 mcg Misoprostol (Cytotec) 25 mcg VAG Q4H PRN PRN Reason: Cervical Ripening Last Admin: 03/14/19 00:57 Dose: 25 mcg Morphine Sulfate (Morphine) 10 mg IVPUSH Q4H PRN PRN Reason: Pain Last Admin: 03/14/19 08:20 Dose: 10 mg Nalbuphine HCl (Nubain) 10 mg IVPUSH ASDIRECTED PRN PRN Reason: Pain (severe 7-10) Naloxone HCl (Narcan) 0.1 mg IVPUSH ASDIRECTED PRN PRN Reason: Respiratory Depression Ondansetron HCl (Zofran) 4 mg IVPUSH Q6H PRN PRN Reason: Nausea/Vomiting Ondansetron HCl (Zofran) 4 mg IVPUSH Q4H PRN PRN Reason: Nausea/Vomiting Oxycodone/Acetaminophen (Percocet 325-5 Mg) 1 tab PO Q4H PRN PRN Reason: Pain (moderate 4-6) Oxycodone/Acetaminophen (Percocet 325-5 Mg) 2 tab PO Q4H PRN PRN Reason: Pain (moderate 4-6) Sodium Chloride (Saline Flush) 10 ml FLUSH ASDIRECTED PRN PRN Reason: Keep Vein Open Last Admin: 03/14/19 01:05 Dose: 10 ml Sodium Chloride (Normal Saline) 10 ml IV ASDIRECTED PRN PRN Reason: IV Use Sterile Water (Sterile Water For Irrigation) 1,000 ml IRR ASDIRECTED PRN PRN Reason: delivery Terbutaline Sulfate (Brethine) 0.25 mg SUBCUT ASDIRECTED PRN PRN Reason: Tacysystole Discontinued Medications Fentanyl (Sublimaze) Confirm Administered Dose 250 mcg .ROUTE .STK-MED ONE Stop: 03/14/19 03:41 Fentanyl (Sublimaze) Confirm Administered Dose 100 mcg .ROUTE .STK-MED ONE Stop: 03/14/19 04:34 Hydromorphone HCl (Dilaudid) Confirm Administered Dose 2 mg .ROUTE .STK-MED ONE Stop: 03/14/19 03:54 Lidocaine HCl (Xylocaine 1%) Confirm Administered Dose 50 ml .ROUTE .STK-MED ONE Stop: 03/14/19 03:33 Last Admin: 03/14/19 09:26 Dose: Not Given Meperidine HCl (Demerol) 12.5 mg IVPUSH ONETIME ONE Stop: 03/14/19 05:19 Last Admin: 03/14/19 09:27 Dose: Not Given Meperidine HCl (Demerol) Confirm Administered Dose 50 mg .ROUTE .STK-MED ONE Stop: 03/14/19 05:20 Last Admin: 03/14/19 05:31 Dose: 50 mg Midazolam HCl (Versed 1 Mg/Ml) Confirm Administered Dose 2 mg .ROUTE .STK-MED ONE Stop: 03/14/19 03:40 Octyl Cyanoacrylate (Dermabond Advance) Confirm Administered Dose 1 applic .ROUTE .STK-MED ONE Stop: 03/14/19 04:07 Last Admin: 03/14/19 09:27 Dose: Not Given Propofol (Diprivan 20 Ml) Confirm Administered Dose 200 mg .ROUTE .STK-MED ONE Stop: 03/14/19 03:33 Succinylcholine Chloride (Succinylcholine Chloride) Confirm Administered Dose 200 mg .ROUTE .STK-MED ONE Stop: 03/14/19 03:33 Sugammadex Sodium (Bridion) Confirm Administered Dose 200 mg .ROUTE .STK-MED ONE Stop: 03/14/19 04:16 Last Admin: 03/14/19 09:27 Dose: Not Given Terbutaline Sulfate (Brethine) Confirm Administered Dose 2 mg .ROUTE .STK-MED ONE Stop: 03/14/19 03:31 Last Admin: 03/14/19 09:26 Dose: Not Given - Interaction Infant Disposition, : in Room with Family Interaction: Holding Feeding: Attempted ; Nursed Fair/Poor Support Person: , Veneer 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 Spreader - Recovery Exam Fundal Tone: Firm Fundal Level: 1 Fingerbreadths Above Umbilicus Fundal Placement: Midline Lochia Amount: Scant Lochia Color: Rubra/Red Perineum Description: Intact, Minimal Bruising/Swelling Episiotomy/Laceration: None Bladder Status: Indwelling Catheter in Place Urinary Elimination: Indwelling Catheter - Exam General: Alert, Oriented HEENT: Pupils Equal Neck: Supple Lungs: Clear to Auscultation, Normal Respiratory Effort Cardiovascular: Regular Rate, Regular Rhythm GI/Abdominal Exam: Normal Bowel Sounds, Soft, Non-Tender, No Organomegaly, No Distention, No Abnormal Bruit, No Mass, Pelvis Stable Extremities: Normal Inspection, Normal Range of Motion, Non-Tender, No Pedal Edema, Normal Capillary Refill Skin: Warm, Dry, Intact Wound/Incisions: Healing Well Neurological: No New Focal Deficit Psy/Mental Status: Alert, Normal Affect, Normal Mood - Problem List Review Problem List Initiated/Reviewed/Updated: Yes - My Orders Last 24 Hours: My Active Orders 03/13/19 23:44 Bedrest Bathroom Privileges [RC] ASDIRECTED May Shower [RC] ASDIRECTED Up ad Monica [RC] ASDIRECTED Vital Signs [RC] PER UNIT ROUTINE Vital Signs [RC] PER UNIT ROUTINE TYPE AND SCREEN [BBK] Routine Butorphanol [Stadol] 1 mg IVPUSH ASDIRECTED PRN Carboprost Tromethamine [Hemabate DS] 250 mcg IM ASDIRECTED PRN Lidocaine 1% [Xylocaine 1%] 50 ml INJECT ONETIME PRN Methylergonovine [Methergine] 0.2 mg IM ASDIRECTED PRN Nalbuphine [Nubain] 10 mg IVPUSH ASDIRECTED PRN Ondansetron [Zofran] 4 mg IVPUSH Q6H PRN Sodium Chloride 0.9% [Normal Saline] 10 ml IV ASDIRECTED PRN Sodium Chloride 0.9% [Saline Flush] 10 ml FLUSH ASDIRECTED PRN Terbutaline [Brethine] 0.25 mg SUBCUT ASDIRECTED PRN Tranexamic Acid [Cyklokapron] 1,000 mg Sodium Chloride 0.9% [Normal Saline] 100 ml IV ONETIME Water For Irrigation,Sterile [Sterile Water for Irrigation] 1,000 ml IRR ASDIRECTED PRN miSOPROStol [Cytotec] 200 mcg PO ONETIME PRN miSOPROStol [Cytotec] 25 mcg PO Q4H PRN miSOPROStol [Cytotec] 25 mcg VAG Q4H PRN Scalp Electrode [WOMSER] Per Unit Routine Peripheral IV Insertion Adult [OM.PC] Routine Resuscitation Status Routine 03/13/19 23:45 Lactated Ringers [Ringers, Lactated] 1,000 ml IV ASDIRECTED Oxytocin/0.9 % Sodium Chloride [Oxytocin 30 Unit/500 ML-NS] 30 unit in 500 ml IV TITRATE Oxytocin/0.9 % Sodium Chloride [Oxytocin 30 Unit/500 ML-NS] 30 unit in 500 ml IV TITRATE Medication Administration Instruction [OM.PC] Q3H 03/14/19 04:00 Ketorolac [Toradol] 30 mg IVPUSH Q6H 03/14/19 04:33 Acetaminophen/oxyCODONE [Percocet 325-5 MG] 1 tab PO Q4H PRN Acetaminophen/oxyCODONE [Percocet 325-5 MG] 2 tab PO Q4H PRN Bisacodyl [Dulcolax] 10 mg RECTAL ONETIME PRN Lanolin [Lansinoh HPA] See Dose Instructions TOP ASDIRECTED PRN Ondansetron [Zofran] 4 mg IVPUSH Q4H PRN diphenhydrAMINE [Benadryl] 25 mg IVPUSH Q6H PRN 03/14/19 04:34 Patient Status [ADT] Routine Ambulate [RC] PER UNIT ROUTINE Communication Order [RC] PER UNIT ROUTINE Communication Order [RC] Per Unit Routine May Shower [RC] ASDIRECTED RT Incentive Spirometry [RC] Q2HWA Vital Signs [RC] PER UNIT ROUTINE Assess Lochia [WOMSER] Per Unit Routine Assess Uterine Involution [WOMSER] Per Unit Routine Breast Pump [WOMSER] Per Unit Routine Peripheral IV Discontinue [OM.PC] Routine Sequential Compression Device [OM.PC] Per Unit Routine 03/14/19 04:36 Antiembolic Devices [RC] PER UNIT ROUTINE 03/14/19 04:45 Lactated Ringers [Ringers, Lactated] 1,000 ml IV ASDIRECTED 03/14/19 07:57 Morphine 10 mg IVPUSH Q4H PRN 03/14/19 09:00 Docusate Sodium [Colace] 100 mg PO BID 03/14/19 Breakfast Regular Diet [DIET] 03/15/19 05:11 HEMOGLOBIN/HEMATOCRIT,HH [HEME] Timed 03/15/19 10:00 Ibuprofen [Motrin] 800 mg PO Q8H PRN - Assessment Assessment:: S/P c/section doing well. - Plan Plan:: POst date 41+wks admited for induction.
--- NOTE | 2019-03-14 22:07 | PCM48HPAN ---
Post Anesthesia Note - EVALUATION WITHIN 48HRS OF ANESTHETIC Vital Signs in Normal Range: Yes Patient Participated in Evaluation: Yes Respiratory Function Stable: Yes Airway Patent: Yes Cardiovascular Function Stable: Yes Hydration Status Stable: Yes Mental Status Recovered: Yes Pulse Rate: 90 SaO2: 96 Resp Rate: 18 Blood Pressure: 121/70
[2019-03-14] MEDS ORDERED: Ibuprofen 800 MG Tab ONE (23:48)
[2019-03-15] MEDS: Acetaminophen/oxyCODONE 325-5 MG Tab PO PRN ×2 (01:17→06:01)
[2019-03-15] MEDS ORDERED: Ibuprofen 800 MG Tab PO PRN ×2 (07:54→10:00)
[2019-03-15] MEDS: Ketorolac 30 MG/ML SDV IVPUSH SCH (07:57)
--- NOTE | 2019-03-15 11:20 | PCM.PNPP ---
- General Info Date of Service: 03/15/19 Functional Status: Reports: Pain Controlled - Review of Systems General: Reports: No Symptoms HEENT: Reports: No Symptoms Pulmonary: Reports: No Symptoms Cardiovascular: Reports: No Symptoms Gastrointestinal: Reports: No Symptoms Genitourinary: Reports: No Symptoms Musculoskeletal: Reports: No Symptoms Skin: Reports: No Symptoms Neurological: Reports: No Symptoms Psychiatric: Reports: No Symptoms - General Info Date of Service: 03/15/19 - Patient Data Vital Signs - Most Recent: Last Vital Signs Temp 36.8 C 03/15/19 08:20 Pulse 91 03/15/19 08:20 Resp 16 03/15/19 08:20 BP 99/64 03/15/19 08:20 Pulse Ox 96 03/15/19 08:20 Weight - Most Recent: 86.183 kg I&O - Last 24 Hours: Intake & Output 03/14/19 03/15/19 03/15/19 22:59 06:59 14:59 Output Total 200 Balance -200 Lab Results - Last 24 Hours: Laboratory Results - last 24 hr 03/15/19 Range/Units 05:19 Hgb 9.1 L (12.0-16.0) g/dL Hct 27.9 L (36.0-46.0) % Med Orders - Current: Current Medications Albuterol (Proventil Neb Soln) 2.5 mg NEB ONETIME PRN PRN Reason: Wheezing Atropine Sulfate (Atropine 0.1 Mg/Ml) 0.5 mg IVPUSH ASDIRECTED PRN PRN Reason: Hypo-perfusion Atropine Sulfate (Atropine 0.1 Mg/Ml) 1 mg IVPUSH ASDIRECTED PRN PRN Reason: Hypo-Perfusion Bisacodyl (Dulcolax) 10 mg RECTAL ONETIME PRN PRN Reason: Constipation Dextrose/Water (Dextrose 50% In Water) 50 ml IVPUSH ASDIRECTED PRN PRN Reason: Hypoglycemia Diphenhydramine HCl (Benadryl) 25 mg IVPUSH Q6H PRN PRN Reason: Itching or Nausea Docusate Sodium (Colace) 100 mg PO BID JAISON Last Admin: 03/14/19 21:12 Dose: 100 mg Emollient Ointment (Lansinoh Hpa) 0 gm TOP ASDIRECTED PRN PRN Reason: Sore Nipples Epinephrine HCl (Epinephrine 1:10,000) 1 mg IVPUSH ASDIRECTED PRN PRN Reason: ACLS Guidelines Fentanyl (Sublimaze) 50 - 100 mcg IVPUSH Q5M PRN PRN Reason: Pain Last Admin: 03/14/19 05:55 Dose: 50 mcg Oxytocin/Sodium Chloride (Oxytocin 30 Unit/500 Ml-Ns) 30 unit in 500 mls @ 2 mls/hr IV TITRATE JA[facility]; Protocol Lactated Ringer's (Ringers, Lactated) 1,000 mls @ 125 mls/hr IV ASDIRECTED [facility] Ibuprofen (Motrin) 800 mg PO Q8H PRN PRN Reason: mild pain or fever Last Admin: 03/15/19 08:12 Dose: 800 mg Misoprostol (Cytotec) 25 mcg PO Q4H PRN PRN Reason: Cervical Ripening Last Admin: 03/14/19 01:00 Dose: 25 mcg Misoprostol (Cytotec) 25 mcg VAG Q4H PRN PRN Reason: Cervical Ripening Last Admin: 03/14/19 00:57 Dose: 25 mcg Morphine Sulfate (Morphine) 10 mg IVPUSH Q4H PRN PRN Reason: Pain Last Admin: 03/14/19 13:42 Dose: 10 mg Naloxone HCl (Narcan) 0.1 mg IVPUSH ASDIRECTED PRN PRN Reason: Respiratory Depression Ondansetron HCl (Zofran) 4 mg IVPUSH Q4H PRN PRN Reason: Nausea/Vomiting Oxycodone/Acetaminophen (Percocet 325-5 Mg) 1 tab PO Q4H PRN PRN Reason: Pain (moderate 4-6) Last Admin: 03/14/19 21:12 Dose: 1 tab Oxycodone/Acetaminophen (Percocet 325-5 Mg) 2 tab PO Q4H PRN PRN Reason: Pain (moderate 4-6) Last Admin: 03/15/19 06:01 Dose: 2 tab Sodium Chloride (Saline Flush) 10 ml FLUSH ASDIRECTED PRN PRN Reason: Keep Vein Open Last Admin: 03/14/19 01:05 Dose: 10 ml Sodium Chloride (Normal Saline) 10 ml IV ASDIRECTED PRN PRN Reason: IV Use Terbutaline Sulfate (Brethine) 0.25 mg SUBCUT ASDIRECTED PRN PRN Reason: Tacysystole Discontinued Medications Butorphanol Tartrate (Stadol) 1 mg IVPUSH ASDIRECTED PRN PRN Reason: Pain Carboprost Tromethamine (Hemabate Ds) 250 mcg IM ASDIRECTED PRN PRN Reason: Post Hemorrhage Fentanyl (Sublimaze) Confirm Administered Dose 250 mcg .ROUTE .STK-MED ONE Stop: 03/14/19 03:41 Fentanyl (Sublimaze) Confirm Administered Dose 100 mcg .ROUTE .STK-MED ONE Stop: 03/14/19 04:34 Hydromorphone HCl (Dilaudid) Confirm Administered Dose 2 mg .ROUTE .STK-MED ONE Stop: 03/14/19 03:54 Lactated Ringer's (Ringers, Lactated) 1,000 mls @ 150 mls/hr IV ASDIRECTED [facility] Oxytocin/Sodium Chloride (Oxytocin 30 Unit/500 Ml-Ns) 30 unit in 500 mls @ 999 mls/hr IV TITRATE [facility] Tranexamic Acid 1,000 mg/ (Sodium Chloride) 110 mls @ 660 mls/hr IV ONETIME PRN PRN Reason: Bleeding Ibuprofen (Motrin) 800 mg PO Q8H PRN PRN Reason: mild pain or fever Last Admin: 03/14/19 23:51 Dose: 800 mg Ibuprofen (Motrin) Confirm Administered Dose 800 mg .ROUTE .STK-MED ONE Stop: 03/14/19 23:49 Ketorolac Tromethamine (Toradol) 30 mg IVPUSH Q6H [facility] Stop: 03/15/19 04:01 Last Admin: 03/15/19 07:57 Dose: Not Given Lidocaine HCl (Xylocaine 1%) 50 ml INJECT ONETIME PRN PRN Reason: Laceration repair Lidocaine HCl (Xylocaine 1%) Confirm Administered Dose 50 ml .ROUTE .STK-MED ONE Stop: 03/14/19 03:33 Last Admin: 03/14/19 09:26 Dose: Not Given Meperidine HCl (Demerol) 12.5 mg IVPUSH ONETIME ONE Stop: 03/14/19 05:19 Last Admin: 03/14/19 09:27 Dose: Not Given Meperidine HCl (Demerol) Confirm Administered Dose 50 mg .ROUTE .STK-MED ONE Stop: 03/14/19 05:20 Last Admin: 03/14/19 05:31 Dose: 50 mg Methylergonovine Maleate (Methergine) 0.2 mg IM ASDIRECTED PRN PRN Reason: Post Hemorrhage Midazolam HCl (Versed 1 Mg/Ml) Confirm Administered Dose 2 mg .ROUTE .STK-MED ONE Stop: 03/14/19 03:40 Misoprostol (Cytotec) 200 mcg PO ONETIME PRN PRN Reason: Post Hemorrhage Nalbuphine HCl (Nubain) 10 mg IVPUSH ASDIRECTED PRN PRN Reason: Pain (severe 7-10) Octyl Cyanoacrylate (Dermabond Advance) Confirm Administered Dose 1 applic .ROUTE .STK-MED ONE Stop: 03/14/19 04:07 Last Admin: 03/14/19 09:27 Dose: Not Given Ondansetron HCl (Zofran) 4 mg IVPUSH Q6H PRN PRN Reason: Nausea/Vomiting Propofol (Diprivan 20 Ml) Confirm Administered Dose 200 mg .ROUTE .STK-MED ONE Stop: 03/14/19 03:33 Sterile Water (Sterile Water For Irrigation) 1,000 ml IRR ASDIRECTED PRN PRN Reason: delivery Succinylcholine Chloride (Succinylcholine Chloride) Confirm Administered Dose 200 mg .ROUTE .STK-MED ONE Stop: 03/14/19 03:33 Sugammadex Sodium (Bridion) Confirm Administered Dose 200 mg .ROUTE .STK-MED ONE Stop: 03/14/19 04:16 Last Admin: 03/14/19 09:27 Dose: Not Given Terbutaline Sulfate (Brethine) Confirm Administered Dose 2 mg .ROUTE .STK-MED ONE Stop: 03/14/19 03:31 Last Admin: 03/14/19 09:26 Dose: Not Given - Infant Interaction Disposition, : [place] in Room with Family Infant Interaction: Holding Infant Feeding: Attempted ; Nursed Fair/Poor Support Person: , Printer Apprentice - Recovery Exam Fundal Tone: Firm Fundal Level: 1 Fingerbreadths Above Umbilicus Fundal Placement: Midline Lochia Amount: Scant Lochia Color: Rubra/Red Perineum Description: Intact, Minimal Bruising/Swelling Episiotomy/Laceration: None Bladder Status: Nonpalpable, Voiding Urinary Elimination: Voided Other Urinary Elimination, : Not yet voided following catheter removal - Exam General: Alert, Oriented HEENT: Pupils Equal Neck: Supple Lungs: Clear to Auscultation, Normal Respiratory Effort Cardiovascular: Regular Rate, Regular Rhythm GI/Abdominal Exam: Normal Bowel Sounds, Soft, Non-Tender, No Organomegaly, No Distention, No Abnormal Bruit, No Mass, Pelvis Stable Extremities: Normal Inspection, Normal Range of Motion, Non-Tender, No Pedal Edema, Normal Capillary Refill Skin: Warm, Dry, Intact Wound/Incisions: Healing Well Neurological: No New Focal Deficit Psy/Mental Status: Alert, Normal Affect, Normal Mood - Problem List Review Problem List Initiated/Reviewed/Updated: Yes - My Orders Last 24 Hours: My Active Orders 03/15/19 07:53 Resuscitation Status Routine 03/15/19 07:54 Ibuprofen [Motrin] 800 mg PO Q8H PRN - Assessment Assessment:: S/P c/section doing well. - Plan Plan:: POst date 41+wks admited for induction.
== END 2019-03-15 13:28 | disposition home or self-care (01) | DRG 788 ==
LOC: MW.OBCHECK 22:18 → MW.OB 22:19 → MW.OBCHECK 03-14 03:37 → MW.OB 03-14 03:37
PROVIDERS: ADMIT Obstetrics & Gynecology; ATTEND Advanced Practice Midwife
PROC: 10D00Z1 Extraction of Products of Conception, Low, Open Approach (ICD-10-PCS; principal; 2019-03-14)
DX: O32.8XX0 Maternal care for other malpresentation of fetus, not applicable or unspecified (principal); O48.0 Post-term pregnancy; Z3A.41 41 weeks gestation of pregnancy; Z37.0 Single live birth
CPT/HCPCS: 36415; 59025; 74018; 74018-26; 85014; 85018; 85027; A9270-GY; J0330; J1170; J1885; J2001; J2175; J2250; J2270; J2704; J3010; J3105; J3490